=== PATIENT | male | born 1965 | race Caucasian/White ===

== ENCOUNTER 2017-02-28 19:40 | Emergency (ER) | payer MEDICARE, MEDICAID ==
[2017-02-28] MEDS ORDERED: ASPIRIN 81 MG TABLET, CHEWABLE PO ONE (20:19)
[2017-02-28] MEDS ORDERED: OXYCODONE-ACETAMINOPHEN 5-325 MG TABLET PO ONE ×2 (20:20→23:45)
[2017-02-28 20:28] LABS: ABSOLUTE EOSINOPHILS # (AUTO) 0.1 10^3/uL (0.0-0.6); ABSOLUTE LYMPHOCYTES (AUTO) 1.8 10^3/uL (0.5-4.7); ABSOLUTE MONOCYTES (AUTO) 0.9 10^3/uL (0.1-1.4); BASOPHILS % (AUTO) 0.3 % (0-2); EOSINOPHILS % (AUTO) 1.2 % (0-6); HEMATOCRIT 41.8 % (37.9-51.0); HEMOGLOBIN 13.6 g/dL (13.5-17.0); MEAN CORPUSCULAR HEMOGLOBIN 27.8 pg (27.0-33.4); MEAN CORPUSCULAR HGB CONC 32.6 g/dL (32.0-36.0); MEAN CORPUSCULAR VOLUME 86 fl (80-97); MONOCYTES % (AUTO) 10.6 % (3-13); RED BLOOD COUNT 4.89 10^6/uL (4.35-5.55); SEGMENTED NEUTROPHILS % (AUTO) 67.9 % (42-78); WHITE BLOOD COUNT 8.8 10^3/uL (4.0-10.5)
[2017-02-28 20:34] LABS: ALANINE AMINOTRANSFERASE 43 U/L (21-72); ALBUMIN 3.9 g/dL (3.5-5.0); ALKALINE PHOSPHATASE 81 U/L (38-126); ANION GAP 12 (5-19); ASPARTATE AMINO TRANSFERASE 34 U/L (17-59); BILIRUBIN,DIRECT 0.4 mg/dL (0.0-0.4); BILIRUBIN,TOTAL 0.8 mg/dL (0.2-1.3); BLOOD UREA NITROGEN 14 mg/dL (7-20); CALCIUM 9.4 mg/dL (8.4-10.2); CARBON DIOXIDE 27 mmol/L (22-30); CHLORIDE 104 mmol/L (98-107); CREATINE KINASE 135 U/L (55-170); CREATININE RESULT 0.46 mg/dL (0.52-1.25); GLUCOSE 104 mg/dL (75-110); POTASSIUM 4.3 mmol/L (3.6-5.0); SODIUM 142.8 mmol/L (137-145); TOTAL PROTEIN 7.1 g/dL (6.3-8.2)
[2017-02-28 20:46] LABS: CREATINE KINASE MB 3.55 ng/mL (<4.55)
[2017-02-28 20:48] LABS: TROPONIN I < 0.012 ng/mL
--- NOTE | 2017-02-28 22:47 | EKG REPORT ---
SEVERITY:- NORMAL ECG - SINUS RHYTHM : Confirmed by: Janice Roth 28-Feb-2017 22:46:36
[2017-02-28] MEDS ORDERED: AMOXICILLIN TR/POT CLAVULANATE 500-125 MG TAB PO ONE (23:45)
--- NOTE | 2017-02-28 23:51 | ER Document Report ---
ED General - General Chief Complaint: Chest Pain Stated Complaint: CHEST PAIN,JAW PAIN Time seen by provider: 21:46 Mode of Arrival: Medic Information source: Patient Notes: 51-year-old man with a history of muscular dystrophy, hypertension and presents to the emergency room with left chest wall pain. Patient states this occurred while he was moving in his electric chair. The patient states that the chest pain is worse with movement, palpation of the chest wall and deep inspiration. The patient also states that his been having some sore throat and left ear pain for the past 2 days. He denies fever. He does have a history of pharyngitis. He denies any shortness of breath. TRAVEL OUTSIDE OF THE [place] IN LAST 30 DAYS: No - HPI Onset: Just prior to arrival Onset/Duration: Gradual Quality of pain: No pain Severity: None Pain Level: Denies Associated symptoms: denies: Chills, Fever Exacerbated by: Movement Relieved by: Denies Similar symptoms previously: Yes Recently seen / treated by doctor: Yes - Related Data Allergies/Adverse Reactions: venom-honey bee [bee venom (honey bee)] Allergy (Severe, Verified 09/29/16 14:46 ) Past Medical History - General Information source: Patient - Social History Smoking Status: Never Smoker Cigarette use (# per day): No Chew tobacco use (# tins/day): No Frequency of alcohol use: None Drug Abuse: None Lives with: Family Family History: None Patient has suicidal ideation: No Patient has homicidal ideation: No - Past Medical History Cardiac Medical History: Reports: Hx Hypertension Denies: Hx Coronary Artery Disease, Hx Heart Attack Pulmonary Medical History: Denies: Hx Asthma, Hx Bronchitis, Hx COPD, Hx Pneumonia Neurological Medical History: Denies: Hx Cerebrovascular Accident, Hx Seizures Musculoskeltal Medical History: Reports Hx Arthritis - Immunizations Hx Diphtheria, Pertussis, Tetanus Vaccination: Yes Review of Systems - Review of Systems Constitutional: denies: Chills, Fever EENT: Ear pain, Sinus pressure, Throat pain Cardiovascular: See HPI Respiratory: See HPI Gastrointestinal: No symptoms reported Genitourinary: No symptoms reported Male Genitourinary: No symptoms reported Musculoskeletal: See HPI Skin: No symptoms reported Hematologic/Lymphatic: No symptoms reported Neurological/Psychological: No symptoms reported Physical Exam - Vital signs Vitals: Pulse Ox 100 02/28/17 19:55 Notes: Physical exam: GENERAL: 51-year-old man, alert and oriented 3, no acute distress HEAD: Atraumatic, normocephalic. EYES: Pupils equal round and reactive to light, extraocular movements intact, sclera anicteric, conjunctiva are normal. ENT: TMs normal, nares patent, oropharynx reveals some erythema without exudate. Moist mucous membranes. NECK: Normal range of motion, supple without lymphadenopathy or JVD. LUNGS: Breath sounds clear to auscultation bilaterally and equal. No wheezes rales or rhonchi. Chest wall: Patient does have tenderness to the left chest wall to palpation. There is no obvious crepitus or deformities. HEART: Regular rate and rhythm without murmurs, rubs or gallops. ABDOMEN: Soft, normoactive bowel sounds. No tenderness to palpation. No guarding, no rebound. No masses appreciated. EXTREMITIES: Normal range of motion, no pitting or edema. No clubbing or cyanosis. NEUROLOGICAL: Cranial nerves II through XII grossly intact. Patient has limited movement of the upper and lower extremities to his muscular dystrophy. PSYCH: Normal mood, normal affect. SKIN: Warm, Dry, normal turgor, no rashes or lesions noted. Course - Vital Signs Vital signs: Temp Pulse Resp BP Pulse Ox 15 132/78 H 100 02/28/17 20:16 02/28/17 20:16 02/28/17 20:16 - Laboratory Result Diagrams: 02/28/17 19:50 02/28/17 19:50 Laboratory results interpreted by me: 02/28/17 02/28/17 19:50 19:50 RDW 15.0 H Creatinine 0.46 L - Diagnostic Test Radiology reviewed: Image reviewed, Reports reviewed - CTA shows no pulmonary emboli - EKG Interpretation by Tn Rate: Normal Rhythm: NSR - EKG shows normal sinus rhythm with a ventricular rate of 76, no acute ST-T wave changes Discharge - Discharge Clinical Impression: chest wall pain, pharyngitis Condition: Stable Disposition: HOME, SELF-CARE Instructions: Chest Wall Pain ([facility]), Sore Throat ([facility]) Additional Instructions: Recommendations: Take the medicine sparingly: It is a narcotic. The muscle relaxer can cause sedation sometimes so try not to take it at the same time as the pain medicine. Continue the antibiotic as prescribed. Follow-up with Dr. Davison in the next few days. Return to the emergency room for worsening pain or shortness of breath or any concerns he getting worse Prescriptions: Cyclobenzaprine HCl [Flexeril 10 Mg Tablet] 10 mg PO Q8HP PRN #14 tablet PRN Reason: Amox Tr/Potassium Clavulanate [Augmentin 875-125 mg Tablet] 1 tab PO BID #20 tablet Oxycodone HCl/Acetaminophen [Percocet 5-325 mg Tablet] 1 - 2 tab PO ASDIR PRN # 25 tablet PRN Reason: Referrals: MAURILIO DAVISON MD [Primary Care Provider] - Follow up in 3-5 days
[2017-03-01 00:38] VITALS: BP 123/60
== END 2017-03-01 00:15 | disposition home or self-care (01) ==
LOC: ER 19:40
DX: J02.9 Acute pharyngitis, unspecified (principal); R07.81 Pleurodynia; R68.84 Jaw pain; I10 Essential (primary) hypertension; Z91.030 Bee allergy status
CPT/HCPCS: 93005; 99285; 36415; 82553; 82550; 85025; 80053; 84484; 71010; 71275; 93010; A9270 ×3